=== PATIENT | female | born 1955 | race Caucasian/White ===

== ENCOUNTER → 2023-04-19 | Outpatient (CLI) | payer MEDICARE ==
--- NOTE | 2023-04-19 16:16 | NM ---
EXAMINATION TYPE: NM DatScan Brain SPECT DATE OF EXAM: 04/19/2023 COMPARISON: NONE CLINICAL INDICATION: Female, 67 years old with history of G25.0 ESSENTIAL TREMOR; TECHNIQUE: 10 drops of Lugol's solution was administered 1 hour prior to injection as a thyroid bloc melida agent. After the administration of 4.6 mCi I-123 Ioflupane DaTscan. Images obtained [address] injection[address] SPECT images of the brain were acquired with axial and coronal reconstructions. FINDINGS: There is symmetric, comma-shaped activity at the bilateral corpus striata. No significant increased b ackground activity is seen. IMPRESSION: Normal exam against a diagnosis of Parkinson's disease or a parkinsonian syndrome. Findings seen in n ormal individuals and also essential tremor.
== END | disposition home or self-care (01) ==
LOC: RADNMMAIN 10:38
PROVIDERS: ATTEND Psychiatry & Neurology Neurology
DX: G25.0 Essential tremor (principal)
CPT/HCPCS: 78803; A9584